=== PATIENT | female | born 2005 | race Two or more races ===

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

== ENCOUNTER 2024-03-25 09:37 | Outpatient (REF) | payer OTHER, SELFPAY ==
[2024-03-25 10:25] LABS: HCG Quantitative < 2 mIU/mL
== END 2024-03-25 09:38 | disposition home or self-care (01) ==
LOC: HO.LAB 09:37
PROVIDERS: Visit Provider Obstetrics & Gynecology
DX: N91.2 Amenorrhea, unspecified (principal)
CPT/HCPCS: 36415; 84702; 99212

== ENCOUNTER 2024-03-25 11:01 | Outpatient (AMB) | payer OTHER, SELFPAY ==
[2024-03-25 11:02] VITALS: BP 114/66; BMI 27.6
--- NOTE | 2024-03-25 11:02 | A.OFFVIS_ITS ---
Vital Signs 03/25/24 11:02 Height 5 ft 3 in Weight 156 lb BMI 27.6 BP 114/66 Intake Visit Reasons: Hcg follow up Fabricator Artificial Breast Required: Yes Fabricator Artificial Breast Language: Truck Dispatcher Services: Fabricator Artificial Breast Present (in person) Fabricator Artificial Breast Name: Randi OWENS Information Interpreted: non-clinical & clinical Accompanied by: Self / Same As Patient Allergies No Known Allergies Allergy (Verified 03/25/24 11:05) Is last menstrual period known: Yes Last menstrual period: 12/30/23 HPI Comments Details: Presenting complaining of amenorrhea over the last 3 months after long-term Depo-Provera use and discontinuation because the patient is attempting to get . Urine test done at home was negative, hCG done today was less than 2 no additional complaints no nipple discharge or hair growth [facility] Medical History Family planning, Depo-Provera contraception monitoring/administration Lives in homeless group home Language barrier Asthma Social History Household Members Other:: daughter Housing Other:: group home Alcohol intake: never Patient Tobacco Use Status: Never used Tobacco Current occupational status: student Sexual orientation: Straight/Heterosexual Gender identity: Female Female Reproductive History Menstrual Date of last menstrual period: 12/30/23 control method: none Review of Systems Const All systems reviewed & are unremarkable except as noted in HPI and below Reports as per HPI and Reports no additional complaints GI Reports no additional complaints Reports no additional complaints Physical Exam Vital Signs: Last Vital Signs BP 114/66 03/25/24 11:02 BMI result Body Mass Index 27.6 Assessment & Plan Assessment & Plan (1) Amenorrhea: Code(s): N91.2 - Amenorrhea, unspecified Category: Medical Plan: Discussed with the patient the results of hCG being less than 2, offered the patient different options of control but the patient is interested in conception, instructions given the patient to call in case amenorrhea persists for 1-2 months. All questions answered, the patient verbalized understanding Coding Level of Care Code Est Pt Level 3 (76077) Diagnoses Amenorrhea N91.2
== END 2024-03-25 16:26 | disposition home or self-care (01) ==
LOC: HO.HWS 11:02
PROVIDERS: Visit Provider Obstetrics & Gynecology
DX: N91.2 Amenorrhea, unspecified (principal)
CPT/HCPCS: 99213

== ENCOUNTER 2024-12-11 10:27 | Outpatient (REF) | payer OTHER, SELFPAY ==
[2024-12-11 15:51] LABS: CT PCR NOT DETECTED (Not Detect.); NG PCR NOT DETECTED (Not Detect.)
== END 2024-12-11 10:28 | disposition home or self-care (01) ==
LOC: HO.LNP 10:27
PROVIDERS: PCP Family Medicine; Visit Provider Obstetrics & Gynecology
DX: Z01.419 Encounter for gynecological examination (general) (routine) without abnormal findings (principal)
CPT/HCPCS: 81025; 87491; 87591; 88175; 99395

== ENCOUNTER 2024-12-11 10:27 | Outpatient (AMB) | payer OTHER, SELFPAY ==
--- NOTE | 2024-12-11 10:33 | A.OFFVIS_ITS ---
Vital Signs 12/11/24 10:34 Height 5 ft 3 in Weight 146 lb BMI 25.9 BP 118/70 Intake Visit Reasons: annual/DO NOT RS Intake Note: Per patient complaints one year no period Explosives Truck Driver Required: Yes Explosives Truck Driver Language: Train Director Services: Explosives Truck Driver Present (in person) Explosives Truck Driver Name: ROMAN Sanchez Information Interpreted: non-clinical & clinical Medicaid Eligibility Specialist: Medicaid Eligibility Specialist Present (ROMAN Sanchez) Accompanied by: Self / Same As Patient Allergies No Known Allergies Allergy (Verified 12/11/24 10:39) Is last menstrual period known: Yes Post menopausal: No Patient : No HPI Comments Details: Presenting for annual exam. Complaining of amenorrhea of the last year no associated hair growth or nipple discharge. Last Depo-Provera was a year ago. No previous Pap smear, the patient will turn 20 in three-months [facility] Medical History Family planning, Depo-Provera contraception monitoring/administration Lives in homeless senior living Language barrier Asthma Social History Household Members Other:: daughter Housing Other:: senior living Alcohol intake: never Patient Tobacco Use Status: Never used Tobacco Current occupational status: student Sexual orientation: Straight/Heterosexual Gender identity: Female Female Reproductive History Menstrual Age of Menarche: 13 Total pregnancies: 2 Full term: 1 Review of Systems Const All systems reviewed & are unremarkable except as noted in HPI and below Card Reports as per HPI Resp Reports as per HPI GI Reports as per HPI and Reports no additional complaints Reports as per HPI Physical Exam Vital Signs: Last Vital Signs BP 118/70 12/11/24 10:34 BMI result Body Mass Index 25.9 Const General: cooperative, healthy appearing and comfortable Chest Chest palpation & inspection: normal inspection of the chest and normal palpation of entire chest wall Breast/axilla inspection: normal inspection of the breasts and normal inspection of the axillae Breast/axilla palpation: normal palpation of the breasts, normal palpation of the axillae and no axillary lymphadenopathy Resp Effort & Inspection: normal respiratory effort Auscultation: clear to auscultation bilaterally Percussion: percussion normal Cardio Palpation: normal PMI Rate: regular rate Rhythm: regular rhythm Heart sounds: no murmurs and no rubs Peripheral pulses: Peripheral pulses 2+ throughout GI Inspection: Yes normal to inspection Palpation (GI): Soft to palpation, nontender, no guarding, not rigid and No hepatosplenomegaly present Percussion: Yes normal to percussion Auscultation: normal bowel sounds Rectal Exam - Female: deferred General: Yes bladder normal to palpation External Female Exam: No lesion Speculum Exam - Vagina: normal appearance of the vagina, normal palpation, normal vaginal discharge and not erythematous Speculum Exam - Cervix: normal appearance of the cervix and normal palpation Bimanual exam- vagina & uterus: normal bimanual exam, normal palpation, uterine size normal, bladder normal to palpation, consistency normal and normal palpation Bimanual Exam- Adnexa, other: normal adnexae, no masses and no tenderness Results AMB Test Urine AMB Test Urine Negative Last Edit by Randi Longo CMA on 11:05 Assessment & Plan Assessment & Plan (1) Well woman exam: Code(s): Z01.419 - Encounter for gynecological examination (general) (routine) without abnormal findings Category: Medical Plan: Pap done since the patient will turn 20 in three-month. Counseled the patient about the recommended dietary allowance of 1000 mg of Calcium & 600 IU of vitamin D. The patient was instructed to perform monthly self-breast exams and to schedule an annual exam in a year; All questions answered and the patient verbalized understanding. Instructed the patient to schedule annual exam in a year (2) Amenorrhea: Code(s): N91.2 - Amenorrhea, unspecified Category: Medical Plan: Discussed with the patient the possible causes of amenorrhea including but not limited to anovulation, thyroid and prolactin disorders, , end organ problems (uterine synechiae), medication side effects and others. The workup includes to start with UPT if negative this will be followed by a progesterone withdrawal test x 5 days if + bleeding this will be followed by TSH, PRL if negative then the diagnosis is anovulation. if no bleeding occurs will treat with Premarin x 21 days followed by Provera if no bleeding occurs will rule out Premature ovarian failure with FSH/LH Orders: Orders Pap Smear Today Z01.419 - Encounter for gynecological examination (general) (routine) without abnormal findings AMB HCG Urine Test Today Z32.02 - Encounter for test, result negative CT NG by PCR Vag/Cerv Today Z01.419 - Encounter for gynecological examination (general) (routine) without abnormal findings Coding Level of Care Code Est Pt Prev Care 18-39y(19039) Diagnoses Well woman exam Z01.419 Amenorrhea N91.2
[2024-12-11 10:34] VITALS: BP 118/70; BMI 25.9
== END 2024-12-11 11:04 | disposition home or self-care (01) ==
LOC: HO.HWS 10:28
PROVIDERS: PCP Family Medicine; Visit Provider Obstetrics & Gynecology
DX: Z01.419 Encounter for gynecological examination (general) (routine) without abnormal findings (principal); N91.2 Amenorrhea, unspecified; Z32.02 Encounter for pregnancy test, result negative
CPT/HCPCS: 99395; 99459